=== PATIENT | female | born 2000 | race Caucasian/White ===

== ENCOUNTER 2020-09-03 10:23 | Emergency (ER) | payer OTHER ==
[~2020-09-03] VITALS: Ht 167.6 cm; Wt 56.0 kg
[2020-09-03 10:27] VITALS: BP 122/81
[2020-09-03] MEDS ORDERED: TETanus/Pertussis (Acell)/Diphther VAC/PF (Tdap-Adult) 0.5ml syringe IMVAC ONE (10:45)
[2020-09-03] MEDS ORDERED: bacitracin 15gm ointment TP ONE (10:45)
[2020-09-03] MEDS ORDERED: LIDOcaine 1% W/epiNEPHrine 1:200,000 10ml vial IJ ONE (10:45)
[2020-09-03] MEDS ORDERED: AMOX-580 PO (10:49)
[2020-09-03] MEDS ORDERED: amox tr/potassium clavulanate 875/125mg TAB PO ONE (10:50)
[2020-09-03] MEDS ORDERED: acetaminophen 325mg tablet PO ONE (10:50)
== END 2020-09-03 11:43 | disposition home or self-care (01) ==
LOC: ER 10:23
DX: S71.112A Laceration without foreign body, left thigh, initial encounter (principal); Z79.899 Other long term (current) drug therapy; W54.0XXA Bitten by dog, initial encounter; Y93.F9 Activity, other caregiving; Y92.89 Other specified places as the place of occurrence of the external cause; Y99.0 Civilian activity done for income or pay
CPT/HCPCS: 12001; 90471; 90715; 99284

== ENCOUNTER 2021-04-24 15:18 | Emergency (ER) | payer MEDICAID, OTHER ==
[~2021-04-24] VITALS: Ht 165.1 cm; Wt 59.1 kg
[2021-04-24 15:41] VITALS: BP 101/66
[2021-04-24] MEDS ORDERED: mag hydrox/Alum hydrox/simeth 30ml oral suspension PO ONE (16:10)
[2021-04-24] MEDS ORDERED: LIDOcaine Viscous 15ml cup MM ONE (16:10)
[2021-04-24] MEDS ORDERED: sucralfate 1 gm tablet PO ONE (16:10)
[2021-04-24 16:32] LABS: BASOPHILS % (AUTO) 0.5 % (0-1); EOSINOPHILS # (AUTO) 0.1 X10'3 (0-0.9); EOSINOPHILS % (AUTO) 1.6 % (0-6); HEMATOCRIT 39.1 % (35.0-45.0); LYMPHOCYTES # (AUTO) 2.6 X10'3 (1.1-4.8); LYMPHOCYTES % (AUTO) 29.2 % (21-51); MEAN CORPUSCULAR HEMOGLOBIN 29.3 PG (27.0-31.0); MEAN CORPUSCULAR HGB CONC 33.3 g/dL (33.0-36.5); MEAN PLATELET VOLUME 7.8 FL (7.4-10.4); MONOCYTES # (AUTO) 0.7 X10'3 (0-0.9); MONOCYTES % (AUTO) 7.6 % (2-12); NEUTROPHILS # (AUTO) 5.4 X10'3 (1.8-7.7); NEUTROPHILS % (AUTO) 61.1 % (42-75); PLATELET COUNT 269 X10'3 (140-440); RED BLOOD COUNT 4.44 X10'6 (4.20-5.60); RED CELL DISTRIBUTION WIDTH 13.3 % (11.5-14.5); WHITE BLOOD COUNT 8.8 X10'3 (4.5-11.0)
[2021-04-24 16:48] LABS: ALANINE AMINOTRANSFERASE 7 U/L (12-78); ALBUMIN 3.7 G/DL (3.4-5.0); ALBUMIN/GLOBULIN RATIO 1.2 (1.1-1.5); ALKALINE PHOSPHATASE 69 IU/L (46-116); ANION GAP 7 (8-16); ASPARTATE AMINO TRANSFERASE 13 U/L (10-37); BILIRUBIN,TOTAL 0.2 MG/DL (0.1-1.0); BLOOD UREA NITROGEN 13 MG/DL (7-18); BUN/CREATININE RATIO 18.1 (6.6-38.0); CALCIUM 9.1 MG/DL (8.5-10.1); CHLORIDE 106 MMOL/L (99-107); CREATININE 0.72 MG/DL (0.40-0.90); GLUCOSE 84 MG/DL (70-104); LIPASE 168 U/L (73-393); POTASSIUM 3.9 MMOL/L (3.5-5.1); SODIUM 140 MMOL/L (135-145); TOTAL CARBON DIOXIDE 26.6 MMOL/L (24-32); TOTAL PROTEIN 6.9 G/DL (6.4-8.2); eGFR > 90 ML/MIN
[2021-04-24] MEDS ORDERED: PANT-47 PO (17:54)
== END 2021-04-24 17:57 | disposition home or self-care (01) ==
LOC: ER 15:19
DX: K29.70 Gastritis, unspecified, without bleeding (principal); R11.2 Nausea with vomiting, unspecified; R10.84 Generalized abdominal pain
CPT/HCPCS: 36415; 71045; 80053; 83690; 85025; 99284